=== PATIENT | female | born 1950 | race African-American/Black ===

== ENCOUNTER 2024-04-28 04:23 | Day surgery (SDC) | payer OTHER ==
[2024-04-21 12:46] VITALS: BMI 37.1
[2024-04-28] MEDS ORDERED: LIDOCAINE HCL/PF 2% SDV 5ML VIAL ONE (09:06)
[2024-04-28] MEDS ORDERED: DEXAMETHASONE SOD PHOSPHATE 4 MG/1 ML VIAL ONE (09:06)
[2024-04-28] MEDS ORDERED: ONDANSETRON 4 MG/2 ML VIAL ONE (09:06)
[2024-04-28] MEDS ORDERED: PROPOFOL 40 ML ONE (09:06)
[2024-04-28] MEDS ORDERED: MIDAZOLAM HCL 2 MG/2 ML SINGLE DOSE VIAL ONE (09:07)
[2024-04-28] MEDS ORDERED: SUCCINYLCHOLINE CHLORIDE 200 MG/10 ML SYRINGE ONE (09:23)
[2024-04-28] MEDS ORDERED: LIDOCAINE HCL 1%, 10 MG/ML (20ML VIAL) ONE (09:27)
[2024-04-28] MEDS ORDERED: ONDANSETRON 4 MG/2 ML VIAL IVPUSH PRN (10:10)
[2024-04-28] MEDS: ceFAZolin SODIUM 1 GM VIAL IVPB ONE ×2 (11:27)
[2024-04-28] MEDS: LIDOCAINE HCL 1%, 10 MG/ML (20ML VIAL) INF ONE ×2 (11:35)
[2024-04-28] MEDS: LACTATED RINGERS SOLUTION 1,000 ML IV SCH (12:29)
[2024-04-28] MEDS ORDERED: ACETAMINOPHEN 325 MG TABLET (FP) ONE (14:48)
[2024-04-28] MEDS: ACETAMINOPHEN 325 MG TABLET (FP) PO ONE (14:50)
[2024-04-28 15:56] VITALS: BP 138/60; PULSE 75; RESP 16; TEMP 97.1
== END 2024-04-28 16:10 | disposition home or self-care (01) ==
LOC: JASU-SURG 04:23
PROVIDERS: ATTEND Surgery
PROC: 0HBT0ZZ Excision of Right Breast, Open Approach (ICD-10-PCS; principal; 2024-04-28 10:00)
DX: D05.91 Unspecified type of carcinoma in situ of right breast (principal); D24.1 Benign neoplasm of right breast
CPT/HCPCS: 19281; 76098-TC-FY; 82962; 88307-TC; 88341-TC; 88342-TC; 94760